=== PATIENT | male | born 1970 | race Caucasian/White ===

== ENCOUNTER 2024-10-10 19:47 | Emergency (ER) | payer OTHER ==
[~2024-10-10] VITALS: Ht 182.9 cm; Wt 95.3 kg
[2024-10-10 20:32] VITALS: BP 138/92; TEMP 98; O2SAT 99
== END 2024-10-10 20:49 | disposition home or self-care (01) ==
LOC: ER 19:55
DX: Z00.00 Encounter for general adult medical examination without abnormal findings (principal); Z53.21 Procedure and treatment not carried out due to patient leaving prior to being seen by health care provider